=== PATIENT | female | born 1945 | race Hispanic/Latino ===

== ENCOUNTER 2017-06-23 20:07 | Inpatient (IN) | payer MEDICARE ==
[~2017-06-23] VITALS: Ht 157.5 cm; Wt 44.3 kg
[~2017-06-23 20:07] MED LIST: CARV3.12 PO; DOXY100T2 PO; FURO20TA4 PO; METALAZONE PO; POTA20TA82 PO; RAMI2.5C15 PO; SIMV20TA6 PO; SPIR25TA PO
[2017-06-23] MEDS ORDERED: IPRATROPIUM/ALBUTEROL SULFATE 3 ML SOLUTION IH ONE (20:37)
[2017-06-23 20:45] LABS: BASOPHILS % (AUTO) 0.2 % (0.0-5.0); HEMATOCRIT 39.4 % (36-48); LYMPHOCYTES % (AUTO) 7.8 % (21.0-51.0); MEAN CORPUSCULAR HEMOGLOBIN 33.6 pg (27.0-33.0); MEAN CORPUSCULAR VOLUME 98.8 fL (79-99); MONOCYTES % (AUTO) 6.7 % (3.0-13.0); NEUTROPHILS % (AUTO) 85.3 % (40.0-77.0); NUCLEATED RED BLOOD CELLS 0.1 % (0.0-0.19); PLATELET COUNT (AUTO) 125 K/uL (130-400); RED BLOOD CELL COUNT(AUTO) 3.98 MIL/uL (4.00-5.50); RED CELL DISTRIBUTION WIDTH 19.5 % (11.0-15.5); WHITE BLOOD COUNT (AUTO) 6.2 K/uL (4.8-10.8)
[2017-06-23 20:55] LABS: CREATININE 1.4 mg/dL (0.5-1.5); POTASSIUM 4.7 mmol/L (3.5-5.1)
[2017-06-23] MEDS ORDERED: CEFTRIAXONE SODIUM 1 GM ONE (20:56)
[2017-06-23] MEDS ORDERED: SODIUM CHLORIDE 0.9% 500ML 500 ML IV ONE (20:56)
[2017-06-23 20:59] LABS: ALBUMIN 3.4 g/dL (3.5-5.0); BILIRUBIN,TOTAL 1.9 mg/dL (0.2-1.0); TOTAL PROTEIN, SERUM 7.2 g/dL (6.0-8.3)
[2017-06-23 21:12] LABS: APPEARANCE,URINE Cloudy (CLEAR); BILIRUBIN,URINE Small (NEGATIVE); COLOR,URINE Dark Yellow (YELLOW); GLUCOSE, URINE (UA) Negative (NEGATIVE); KETONES,URINE Negative (NEGATIVE); LEUKOCYTE ESTERASE ,URINE Moderate (NEGATIVE); NITRATE,URINE Negative (NEGATIVE); OCCULT BLOOD,URINE Small (NEGATIVE); PROTEIN,URINE POS 2+ (NEGATIVE)
[2017-06-23 21:22] LABS: BACTERIA,URINE Rare /HPF (None Seen)
[2017-06-23 21:23] LABS: MUCUS,URINE Few LPF (None Seen)
[2017-06-23] MEDS ORDERED: FUROSEMIDE 10 MG/ML 4ML VIAL ONE (22:08)
[2017-06-23] MEDS ORDERED: MIDODRINE HCL 5 MG TABLET ONE (22:15)
[2017-06-24] MEDS ORDERED: HYDRALAZINE HCL 20 MG/ML VIAL IV PRN (00:45)
[2017-06-24] MEDS ORDERED: ACETAMINOPHEN 325 MG TAB PO PRN (00:45)
[2017-06-24] MEDS ORDERED: ONDANSETRON HCL 4 MG/2 ML VIAL IV PRN (00:45)
[2017-06-24] MEDS: LEVOFLOXACIN 500 MG/D5W 100 ML 100 ML IV SCH (01:00)
[2017-06-24] MEDS ORDERED: LEVOFLOXACIN 500 MG/D5W 100 ML 100 ML ONE (01:16)
[2017-06-24 08:10] VITALS: BP 88/54
[2017-06-24] MEDS ORDERED: ENOXAPARIN SODIUM 30 MG/0.3 ML SQ ONE (08:40)
[2017-06-24] MEDS ORDERED: MIDODRINE HCL 5 MG TABLET ONE (08:40)
[2017-06-24] MEDS: ENOXAPARIN SODIUM 30 MG/0.3 ML SQ SCH (08:48)
[2017-06-24] MEDS ORDERED: MIDODRINE HCL 5 MG TABLET PO SCH (09:00)
[2017-06-24] MEDS ORDERED: FAMOTIDINE 20MG TAB 20 MG TAB ONE (09:32)
[2017-06-24] MEDS: FAMOTIDINE 20MG TAB 20 MG TAB PO SCH ×2 (09:34→22:18)
[2017-06-24 12:26] VITALS: BP 91/52
[2017-06-24] MEDS: FUROSEMIDE 10 MG/ML 2ML VIAL IV SCH (15:09)
[2017-06-24] MEDS: POTASSIUM CHLORIDE 20 MEQ ERTAB PO SCH (15:09)
[2017-06-24] MEDS: MILRINONE-D5W 20 MG/100 ML 100 ML IV SCH (15:13)
[2017-06-24 16:00] VITALS: BP 92/63
[2017-06-24 19:37] VITALS: BP 92/54
[2017-06-24] MEDS: ATORVASTATIN CALCIUM 20 MG TABLET PO SCH (22:18)
[2017-06-24 23:46] VITALS: BP 97/61
[2017-06-25] MEDS: LEVOFLOXACIN 500 MG/D5W 100 ML 100 ML IV SCH (01:10)
[2017-06-25] MEDS: CARVEDILOL 3.125 MG TABLET PO SCH ×3 (01:16→20:42)
[2017-06-25 04:40] LABS: BASOPHILS % (AUTO) 0.2 % (0.0-5.0); EOSINOPHILS % (AUTO) 0.1 % (0.0-8.0); LYMPHOCYTES % (AUTO) 9.7 % (21.0-51.0); MEAN CORPUSCULAR HEMOGLOBIN 34.3 pg (27.0-33.0); MEAN CORPUSCULAR HGB CONC 34.8 g/dL (32.0-36.0); MEAN CORPUSCULAR VOLUME 98.4 fL (79-99); MONOCYTES % (AUTO) 8.1 % (3.0-13.0); NEUTROPHILS % (AUTO) 81.9 % (40.0-77.0); NUCLEATED RED BLOOD CELLS 0.1 % (0.0-0.19); PLATELET COUNT (AUTO) 104 K/uL (130-400); RED BLOOD CELL COUNT(AUTO) 3.45 MIL/uL (4.00-5.50); RED CELL DISTRIBUTION WIDTH 19.5 % (11.0-15.5); WHITE BLOOD COUNT (AUTO) 6.2 K/uL (4.8-10.8)
[2017-06-25 04:46] LABS: CREATININE 1.4 mg/dL (0.5-1.5); POTASSIUM 3.5 mmol/L (3.5-5.1)
[2017-06-25 04:53] LABS: B-TYPE NATRIURETIC PEPTIDE 3000 pg/mL (0-100)
[2017-06-25] MEDS: FUROSEMIDE 10 MG/ML 2ML VIAL IV SCH ×2 (05:36→16:47)
[2017-06-25 05:45] VITALS: BP 96/62
[2017-06-25] MEDS ORDERED: POTASSIUM CHLORIDE 10 MEQ/TAB.SA PO ONE ×2 (06:05)
[2017-06-25] MEDS ORDERED: LIDOCAINE HCL-MPF 1% 2ML VIAL IVP PRN (06:15)
[2017-06-25] MEDS ORDERED: POTASSIUM CHLORIDE 20 MEQ ERTAB PO PRN (06:15)
[2017-06-25] MEDS ORDERED: POTASSIUM CHLORIDE 20MEQ/100ML 100 ML IV PRN (06:15)
[2017-06-25] MEDS ORDERED: POTASSIUM CHLORIDE 10% ELIXIR 20 MEQ/15 ML UDCUP PO PRN (06:15)
[2017-06-25 07:41] VITALS: BP 102/65
[2017-06-25] MEDS: POTASSIUM CHLORIDE 20 MEQ ERTAB PO SCH (08:24)
[2017-06-25] MEDS: LISINOPRIL 2.5 MG TABLET PO SCH (08:27)
[2017-06-25] MEDS: FAMOTIDINE 20MG TAB 20 MG TAB PO SCH ×2 (08:27→20:41)
[2017-06-25] MEDS: ENOXAPARIN SODIUM 30 MG/0.3 ML SQ SCH (08:28)
[2017-06-25] MEDS ORDERED: ALBUTEROL SULFATE 0.083% 2.5 MG/3 ML INH IH SCH (08:45)
[2017-06-25 11:03] VITALS: BP 105/68
[2017-06-25] MEDS: ALBUTEROL SULFATE 0.083% 2.5 MG/3 ML INH IH SCH ×2 (13:21→22:01)
[2017-06-25 16:00] VITALS: BP 91/60
[2017-06-25] MEDS: MILRINONE-D5W 20 MG/100 ML 100 ML IV SCH (18:08)
[2017-06-25 20:00] VITALS: BP 101/59
[2017-06-25] MEDS: ATORVASTATIN CALCIUM 20 MG TABLET PO SCH (20:42)
[2017-06-26 00:18] VITALS: BP 101/59
[2017-06-26] MEDS: LEVOFLOXACIN 500 MG/D5W 100 ML 100 ML IV SCH (01:17)
[2017-06-26 04:01] VITALS: BP 97/61
[2017-06-26] MEDS: FUROSEMIDE 10 MG/ML 2ML VIAL IV SCH (04:10)
[2017-06-26 04:57] LABS: CREATININE 1.6 mg/dL (0.5-1.5)
[2017-06-26] MEDS: ALBUTEROL SULFATE 0.083% 2.5 MG/3 ML INH IH SCH ×3 (06:29→21:42)
[2017-06-26 07:34] VITALS: BP 97/58
[2017-06-26] MEDS: FAMOTIDINE 20MG TAB 20 MG TAB PO SCH ×2 (09:05→20:05)
[2017-06-26] MEDS: LISINOPRIL 2.5 MG TABLET PO SCH (09:05)
[2017-06-26] MEDS: CARVEDILOL 3.125 MG TABLET PO SCH ×2 (09:05→19:35)
[2017-06-26] MEDS: POTASSIUM CHLORIDE 20 MEQ ERTAB PO SCH (09:06)
[2017-06-26] MEDS: ENOXAPARIN SODIUM 30 MG/0.3 ML SQ SCH (09:06)
[2017-06-26] MEDS ORDERED: LEVOFLOXACIN 750 MG/D5W 150 ML 150 ML IV SCH (09:45)
[2017-06-26] MEDS ORDERED: POLYETHYLENE GLYCOL 3350 17 GM POWD.PACK PO PRN (10:00)
[2017-06-26 11:05] VITALS: BP 80/44
[2017-06-26 16:06] VITALS: BP 80/39
[2017-06-26 19:41] VITALS: BP 76/43
[2017-06-26] MEDS: ATORVASTATIN CALCIUM 20 MG TABLET PO SCH (20:05)
[2017-06-27] VITALS: BP 72/50
[2017-06-27 03:34] VITALS: BP 84/56
[2017-06-27] MEDS: ALBUTEROL SULFATE 0.083% 2.5 MG/3 ML INH IH SCH ×2 (06:16→13:27)
[2017-06-27 07:00] VITALS: BP 90/58
[2017-06-27] MEDS: FAMOTIDINE 20MG TAB 20 MG TAB PO SCH (08:38)
[2017-06-27] MEDS: LISINOPRIL 2.5 MG TABLET PO SCH (08:38)
[2017-06-27] MEDS: FUROSEMIDE 20 MG TABLET PO SCH ×2 (08:38→16:56)
[2017-06-27] MEDS: CARVEDILOL 3.125 MG TABLET PO SCH (08:38)
[2017-06-27] MEDS: POTASSIUM CHLORIDE 20 MEQ ERTAB PO SCH (08:39)
[2017-06-27] MEDS: ENOXAPARIN SODIUM 30 MG/0.3 ML SQ SCH (10:31)
[2017-06-27 11:13] VITALS: BP_SYST 77; BP_SYST 79; BP_DIAS 49; BP_DIAS 55
[2017-06-27 16:00] VITALS: BP 83/57
[2017-06-28] MEDS ORDERED: LEVOFLOXACIN 750 MG/D5W 150 ML 150 ML IV SCH (09:00)
== END 2017-06-27 17:25 | disposition home or self-care (01) | DRG 291 ==
LOC: EDH 20:07 → EDHIP 06-24 00:43 → 2DH 06-24 12:06
PROVIDERS: ADMIT Family Medicine; ATTEND Family Medicine
DX: I13.0 Hypertensive heart and chronic kidney disease with heart failure and stage 1 through stage 4 chronic kidney disease, or unspecified chronic kidney disease (principal); I50.23 Acute on chronic systolic (congestive) heart failure; E87.1 Hypo-osmolality and hyponatremia; I34.0 Nonrheumatic mitral (valve) insufficiency; I44.7 Left bundle-branch block, unspecified; N39.0 Urinary tract infection, site not specified; J45.909 Unspecified asthma, uncomplicated; I25.5 Ischemic cardiomyopathy; I25.10 Atherosclerotic heart disease of native coronary artery without angina pectoris; N18.3 Chronic kidney disease, stage 3 (moderate); J20.9 Acute bronchitis, unspecified; E78.5 Hyperlipidemia, unspecified; Z95.810 Presence of automatic (implantable) cardiac defibrillator
CPT/HCPCS: 36415; 71045; 71046; 80048; 80053; 81001; 82550; 83605; 83880; 84484; 85025; 87040; 87804; 93005; 93306; 94640; 94664; 99291; J0696; J1650; J1940; J1956; J2260; J2405; J7040

== ENCOUNTER 2018-04-06 13:59 | Emergency (ER) | payer MEDICARE ==
[~2018-04-06 13:59] MED LIST changes: -DOXY100T2 PO; -RAMI2.5C15 PO; +RAMI2.5C16 PO
[2018-04-06] MEDS ORDERED: SODIUM CHLORIDE 0.9% 1000ML 1,000 ML IV ONE (14:43)
[2018-04-06] MEDS ORDERED: ONDANSETRON HCL 4 MG/2 ML VIAL ONE (14:43)
[2018-04-06 15:11] LABS: EOSINOPHILS % (AUTO) 0.2 % (0.0-8.0); HEMATOCRIT 39.1 % (36-48); LYMPHOCYTES % (AUTO) 10.6 % (21.0-51.0); MEAN CORPUSCULAR HEMOGLOBIN 34.2 pg (27.0-33.0); MEAN CORPUSCULAR VOLUME 103.6 fL (79-99); MONOCYTES % (AUTO) 10.5 % (3.0-13.0); NEUTROPHILS % (AUTO) 77.7 % (40.0-77.0); NUCLEATED RED BLOOD CELLS 0.1 % (0.0-0.19); PLATELET COUNT (AUTO) 116 K/uL (130-400); RED BLOOD CELL COUNT(AUTO) 3.78 MIL/uL (4.00-5.50); RED CELL DISTRIBUTION WIDTH 15.4 % (11.0-15.5); WHITE BLOOD COUNT (AUTO) 4.7 K/uL (4.8-10.8)
[2018-04-06 15:32] LABS: ALBUMIN 3.7 g/dL (3.5-5.0); CREATININE 1.7 mg/dL (0.5-1.5); POTASSIUM 5.4 mmol/L (3.5-5.1); TOTAL PROTEIN, SERUM 6.4 g/dL (6.0-8.3)
== END 2018-04-06 17:12 | disposition home or self-care (01) ==
LOC: EDH 13:59
DX: A09 Infectious gastroenteritis and colitis, unspecified (principal); E86.9 Volume depletion, unspecified; E78.5 Hyperlipidemia, unspecified; I50.9 Heart failure, unspecified
CPT/HCPCS: 36415; 74176; 80053; 85025; 96361; 96374; 99285; J2405; J7030

== ENCOUNTER 2018-04-08 06:56 | Emergency (ER) | payer MEDICARE ==
[2018-04-08 07:29] LABS: BASOPHILS % (AUTO) 1.4 % (0.0-5.0); HEMATOCRIT 43.3 % (36-48); LYMPHOCYTES % (AUTO) 22.7 % (21.0-51.0); MEAN CORPUSCULAR HEMOGLOBIN 34.5 pg (27.0-33.0); MEAN CORPUSCULAR HGB CONC 33.1 g/dL (32.0-36.0); MEAN CORPUSCULAR VOLUME 104.3 fL (79-99); MONOCYTES % (AUTO) 9.3 % (3.0-13.0); NEUTROPHILS % (AUTO) 65.6 % (40.0-77.0); NUCLEATED RED BLOOD CELLS 0.2 % (0.0-0.19); PLATELET COUNT (AUTO) 121 K/uL (130-400); RED BLOOD CELL COUNT(AUTO) 4.15 MIL/uL (4.00-5.50); RED CELL DISTRIBUTION WIDTH 15.4 % (11.0-15.5); WHITE BLOOD COUNT (AUTO) 4.6 K/uL (4.8-10.8)
[2018-04-08 07:35] LABS: CREATININE 2.2 mg/dL (0.5-1.5); POTASSIUM 4.4 mmol/L (3.5-5.1)
[2018-04-08 07:41] LABS: ALBUMIN 4.1 g/dL (3.5-5.0); BILIRUBIN,TOTAL 2.2 mg/dL (0.2-1.0); TOTAL PROTEIN, SERUM 7.3 g/dL (6.0-8.3)
[2018-04-08] MEDS ORDERED: THIAMINE HCL 100 MG/ML 2ML VIAL ONE (07:41)
[2018-04-08] MEDS ORDERED: M.V.I. IV [ADULT] 10 ML VIAL IV ONE (07:41)
[2018-04-08] MEDS ORDERED: M.V.I. IV [ADULT] 10 ML, THIAMINE HCL 100 MG, FOLIC ACID 1 MG in SODIUM CHLORIDE 0.9% 1... IV SCH (09:00)
== END 2018-04-08 10:35 | disposition home or self-care (01) ==
LOC: EDH 06:56
DX: R11.0 Nausea (principal); I50.9 Heart failure, unspecified; E78.5 Hyperlipidemia, unspecified; Z98.890 Other specified postprocedural states
CPT/HCPCS: 36415; 80053; 83690; 85025; 93005; 96365; 96366; 99285; J3411; J3490; J7030

== ENCOUNTER 2018-04-09 17:34 | Inpatient (IN) | payer MEDICARE ==
[~2018-04-09] VITALS: Ht 157.5 cm; Wt 48.2 kg
[2018-04-09 18:09] LABS: BASOPHILS % (AUTO) 3.8 % (0.0-5.0); EOSINOPHILS % (AUTO) 1.1 % (0.0-8.0); HEMATOCRIT 41.6 % (36-48); LYMPHOCYTES % (AUTO) 15.3 % (21.0-51.0); MEAN CORPUSCULAR HEMOGLOBIN 33.4 pg (27.0-33.0); MEAN CORPUSCULAR HGB CONC 32.6 g/dL (32.0-36.0); MEAN CORPUSCULAR VOLUME 102.4 fL (79-99); MONOCYTES % (AUTO) 13.2 % (3.0-13.0); NEUTROPHILS % (AUTO) 66.6 % (40.0-77.0); NUCLEATED RED BLOOD CELLS 0.3 % (0.0-0.19); PLATELET COUNT (AUTO) 111 K/uL (130-400); RED BLOOD CELL COUNT(AUTO) 4.07 MIL/uL (4.00-5.50); RED CELL DISTRIBUTION WIDTH 15.3 % (11.0-15.5); WHITE BLOOD COUNT (AUTO) 5.2 K/uL (4.8-10.8)
[2018-04-09 18:21] LABS: CREATININE 2.4 mg/dL (0.5-1.5); POTASSIUM 4.3 mmol/L (3.5-5.1)
[2018-04-09 18:23] LABS: INR 1.7 (0.85-1.15); PARTIAL THROMBOPLASTIN TIME 32.1 SEC (26.3-35.5); PROTHROMBIN TIME 17.7 SEC (9.6-11.6)
[2018-04-09 18:26] LABS: ALBUMIN 3.9 g/dL (3.5-5.0); BILIRUBIN,TOTAL 2.7 mg/dL (0.2-1.0)
[2018-04-09 18:42] LABS: B-TYPE NATRIURETIC PEPTIDE > 5000 pg/mL (0-100)
[2018-04-09] MEDS ORDERED: FUROSEMIDE 10 MG/ML 4ML VIAL ONE (19:21)
[2018-04-09] MEDS ORDERED: ENOXAPARIN SODIUM 40 MG/0.4 ML SYRINGE SQ ONE (19:22)
[2018-04-09] MEDS ORDERED: GLUCAGON 1MG KIT 1 MG ML IM PRN (19:30)
[2018-04-09] MEDS ORDERED: DEXTROSE 50%-WATER 50 ML DISP.SYRIN IV PRN (19:30)
[2018-04-09 20:33] LABS: APPEARANCE,URINE Clear (CLEAR); BILIRUBIN,URINE Negative (NEGATIVE); COLOR,URINE Yellow (YELLOW); GLUCOSE, URINE (UA) Negative (NEGATIVE); KETONES,URINE Negative (NEGATIVE); LEUKOCYTE ESTERASE ,URINE Negative (NEGATIVE); NITRATE,URINE Negative (NEGATIVE); OCCULT BLOOD,URINE Negative (NEGATIVE); PH,URINE 5.5 (5.0-8.0); PROTEIN,URINE POS 1+ (NEGATIVE)
[2018-04-09] MEDS: INSULIN HUMULIN R 100 UNIT/ML 3ML SQ SCH (21:00)
[2018-04-09 21:01] LABS: BACTERIA,URINE Rare /HPF (None Seen); RBC,URINE None Seen /HPF (0-1); SQUAMOUS EPITHELIAL CELL,UR 0-2 /HPF (0-2); WBC,URINE 0-1 /HPF (0-1)
[2018-04-09] MEDS ORDERED: ONDANSETRON HCL 4 MG/2 ML VIAL IV PRN (21:15)
[2018-04-09] MEDS ORDERED: ACETAMINOPHEN 325 MG TAB PO PRN (21:15)
[2018-04-10 00:41] LABS: TROPONIN I 0.54 ng/mL (0.00-0.06)
[2018-04-10 06:07] LABS: BASOPHILS % (AUTO) 1.3 % (0.0-5.0); LYMPHOCYTES % (AUTO) 16.6 % (21.0-51.0); MEAN CORPUSCULAR HEMOGLOBIN 33.8 pg (27.0-33.0); MEAN CORPUSCULAR HGB CONC 32.7 g/dL (32.0-36.0); MEAN CORPUSCULAR VOLUME 103.2 fL (79-99); MONOCYTES % (AUTO) 15.8 % (3.0-13.0); NEUTROPHILS % (AUTO) 65.3 % (40.0-77.0); NUCLEATED RED BLOOD CELLS 0.1 % (0.0-0.19); PLATELET COUNT (AUTO) 110 K/uL (130-400); RED BLOOD CELL COUNT(AUTO) 3.68 MIL/uL (4.00-5.50); RED CELL DISTRIBUTION WIDTH 15.2 % (11.0-15.5); WHITE BLOOD COUNT (AUTO) 4.3 K/uL (4.8-10.8)
[2018-04-10 06:20] LABS: HEMOGLOBIN A1C 7.2 % (4.0-6.0)
[2018-04-10 06:26] LABS: ALBUMIN 3.4 g/dL (3.5-5.0); BILIRUBIN,TOTAL 2.2 mg/dL (0.2-1.0); CREATININE 2.3 mg/dL (0.5-1.5); POTASSIUM 3.9 mmol/L (3.5-5.1); TOTAL PROTEIN, SERUM 6.2 g/dL (6.0-8.3)
[2018-04-10 06:35] LABS: TROPONIN I 0.34 ng/mL (0.00-0.06)
[2018-04-10] MEDS ORDERED: ENOXAPARIN SODIUM 40 MG/0.4 ML SYRINGE SQ ONE (07:30)
[2018-04-10] MEDS ORDERED: PANTOPRAZOLE SODIUM 40 MG TABLET.DR PO ONE (07:30)
[2018-04-10] MEDS: FUROSEMIDE 10 MG/ML 4ML VIAL IV SCH ×5 (07:30→21:19)
[2018-04-10 08:07] LABS: BASOPHILS % (MANUAL) 1 % (0-2); EOSINOPHILS % (MANUAL) 1 % (1-6); LYMPHOCYTES % (MANUAL) 21 % (22-44); MONOCYTES % (MANUAL) 9 % (2-9); SEGMENTED NEUTROPHILS % 68 % (40-70)
[2018-04-10 08:08] LABS: MAN.DIFF COMMENT-IMPRESSION MANUAL DIFFERENTIAL
[2018-04-10] MEDS: ENOXAPARIN SODIUM 40 MG/0.4 ML SYRINGE SQ SCH (09:00)
[2018-04-10] MEDS: PANTOPRAZOLE SODIUM 40 MG TABLET.DR PO SCH (09:00)
[2018-04-10] MEDS: INSULIN HUMULIN R 100 UNIT/ML 3ML SQ SCH ×3 (11:30→20:53)
[2018-04-10 15:00] VITALS: BP 97/63
[2018-04-10] MEDS ORDERED: DIGO125T87 PO (15:35)
[2018-04-10] MEDS ORDERED: METO100T14 PO (15:35)
[2018-04-10 15:58] VITALS: BP 89/50
[2018-04-10] MEDS ORDERED: METOLAZONE 2.5 MG TABLET PO SCH (18:00)
[2018-04-10] MEDS: DIGOXIN 125 MCG TABLET PO SCH (18:37)
[2018-04-10 19:40] VITALS: BP 94/53
[2018-04-10] MEDS: CARVEDILOL 3.125 MG TABLET PO SCH (21:00)
[2018-04-10] MEDS: SIMVASTATIN 20 MG TABLET PO SCH (21:19)
[2018-04-10 23:57] VITALS: BP 103/64
[2018-04-11 04:09] VITALS: BP 112/71
[2018-04-11] MEDS: INSULIN HUMULIN R 100 UNIT/ML 3ML SQ SCH ×4 (06:32→21:00)
[2018-04-11 07:18] VITALS: BP 94/51
[2018-04-11] MEDS: CARVEDILOL 3.125 MG TABLET PO SCH ×2 (09:23→20:24)
[2018-04-11] MEDS: SPIRONOLACTONE 25 MG TAB PO SCH (09:23)
[2018-04-11] MEDS: PANTOPRAZOLE SODIUM 40 MG TABLET.DR PO SCH (09:24)
[2018-04-11] MEDS: FUROSEMIDE 10 MG/ML 4ML VIAL IV SCH ×2 (09:24→17:33)
[2018-04-11] MEDS: POTASSIUM CHLORIDE 20 MEQ ERTAB PO SCH (09:24)
[2018-04-11] MEDS: ENOXAPARIN SODIUM 40 MG/0.4 ML SYRINGE SQ SCH (09:25)
[2018-04-11 10:56] VITALS: BP 106/61
[2018-04-11 11:09] LABS: HEMATOCRIT 38.7 % (36-48); MEAN CORPUSCULAR HEMOGLOBIN 33.1 pg (27.0-33.0); MEAN CORPUSCULAR HGB CONC 32.7 g/dL (32.0-36.0); MEAN CORPUSCULAR VOLUME 101.2 fL (79-99); NUCLEATED RED BLOOD CELLS 0.2 % (0.0-0.19); PLATELET COUNT (AUTO) 99 K/uL (130-400); RED BLOOD CELL COUNT(AUTO) 3.82 MIL/uL (4.00-5.50); RED CELL DISTRIBUTION WIDTH 15.1 % (11.0-15.5); WHITE BLOOD COUNT (AUTO) 4.5 K/uL (4.8-10.8)
[2018-04-11 11:32] LABS: ALBUMIN 3.6 g/dL (3.5-5.0); B-TYPE NATRIURETIC PEPTIDE 4420 pg/mL (0-100); BILIRUBIN,TOTAL 2.1 mg/dL (0.2-1.0); CREATININE 2.3 mg/dL (0.5-1.5); POTASSIUM 3.5 mmol/L (3.5-5.1); TOTAL PROTEIN, SERUM 6.8 g/dL (6.0-8.3); TROPONIN I 0.54 ng/mL (0.00-0.06)
[2018-04-11 16:11] VITALS: BP 101/60
[2018-04-11] MEDS: DIGOXIN 125 MCG TABLET PO SCH (17:33)
[2018-04-11 19:45] VITALS: BP 104/64
[2018-04-11] MEDS: SIMVASTATIN 20 MG TABLET PO SCH (20:24)
[2018-04-11 23:43] VITALS: BP 101/60
[2018-04-12 04:00] VITALS: BP 107/62
[2018-04-12] MEDS: INSULIN HUMULIN R 100 UNIT/ML 3ML SQ SCH ×2 (05:44→12:01)
[2018-04-12] MEDS: FUROSEMIDE 10 MG/ML 4ML VIAL IV SCH (06:31)
[2018-04-12 07:16] VITALS: BP 108/69
[2018-04-12] MEDS ORDERED: LINAGLIPTIN 5 MG TABLET PO SCH (09:00)
[2018-04-12] MEDS: SPIRONOLACTONE 25 MG TAB PO SCH (09:16)
[2018-04-12] MEDS: ENOXAPARIN SODIUM 40 MG/0.4 ML SYRINGE SQ SCH (09:16)
[2018-04-12] MEDS: CARVEDILOL 3.125 MG TABLET PO SCH (09:17)
[2018-04-12] MEDS: POTASSIUM CHLORIDE 20 MEQ ERTAB PO SCH (09:17)
[2018-04-12] MEDS: PANTOPRAZOLE SODIUM 40 MG TABLET.DR PO SCH (09:17)
[2018-04-12 11:19] VITALS: BP 98/60
== END 2018-04-12 14:00 | disposition home or self-care (01) | DRG 291 ==
LOC: EDH 17:34 → EDHIP 19:06 → 2AH 04-10 14:51
PROVIDERS: ADMIT Internal Medicine; ATTEND Internal Medicine
DX: I13.0 Hypertensive heart and chronic kidney disease with heart failure and stage 1 through stage 4 chronic kidney disease, or unspecified chronic kidney disease (principal); I50.43 Acute on chronic combined systolic (congestive) and diastolic (congestive) heart failure; R18.8 Other ascites; N18.4 Chronic kidney disease, stage 4 (severe); I25.5 Ischemic cardiomyopathy; K80.20 Calculus of gallbladder without cholecystitis without obstruction; E11.22 Type 2 diabetes mellitus with diabetic chronic kidney disease; E78.5 Hyperlipidemia, unspecified; R79.1 Abnormal coagulation profile; I25.10 Atherosclerotic heart disease of native coronary artery without angina pectoris; I25.2 Old myocardial infarction; Z82.49 Family history of ischemic heart disease and other diseases of the circulatory system; Z83.3 Family history of diabetes mellitus; Z95.810 Presence of automatic (implantable) cardiac defibrillator; Z87.440 Personal history of urinary (tract) infections; Z28.21 Immunization not carried out because of patient refusal; Z79.84 Long term (current) use of oral hypoglycemic drugs
CPT/HCPCS: 36415; 71045; 71046; 76705; 80053; 81001; 82150; 82550; 82948; 83036; 83690; 83735; 83874; 83880; 84132; 84484; 85025; 85027; 85378; 85610; 85730; 87804; 93005; 93306; 93970; 99291; J1650; J1815; J1940